=== PATIENT | female | born 1995 | race Caucasian/White ===

== ENCOUNTER 2020-06-07 23:47 | Emergency (ER) | payer BC, OTHER ==
[2020-06-08 00:37] LABS: Urine Blood NEGATIVE (NEG); Urine Glucose NEGATIVE (NEG); Urine Protein NEGATIVE (NEG); Urine Specific Gravity 1.015 (1.005-1.030)
[2020-06-08 00:39] LABS: Absolute Lymphocytes (CBC) 3.2 K/uL (0.7-4.9); Basophils % 0.3 % (0-1.3); Hematocrit 35.8 % (36.0-45.0); Lymphocytes % 22.8 % (15.3-44.8); MPV 8.8 fL (7.6-11.3); RBC Red Blood Cell Count 3.78 M/uL (3.86-4.86)
[2020-06-08] MEDS ORDERED: ONDANSETRON 4 MG/2 ML VIAL ONE (00:43)
[2020-06-08 00:56] LABS: ALT/SGPT 13 U/L (12-78); AST/SGOT 10 U/L (15-37); Albumin 3.2 g/dL (3.4-5.0); Alkaline Phosphatase 37 U/L (45-117); BUN Blood Urea Nitrogen 6 mg/dL (7-18); Bicarbonate 25 mmol/L (21-32); Bilirubin Direct < 0.1 mg/dL (0-0.2); Bilirubin Total 0.2 mg/dL (0.2-1.0); Glucose Level 81 mg/dL (74-106); Potassium 3.6 mmol/L (3.5-5.1); Protein, Total 7.1 g/dL (6.4-8.2); Sodium Level 140 mmol/L (136-145)
[2020-06-08 01:02] LABS: Urine Bacteria LOADED /HPF (<20); Urine Mucus 1+ /HPF (NONE SEEN); Urine RBC <5 /HPF (NONE SEEN)
--- NOTE | 2020-06-08 02:00 | EDPHYS ---
Physician Documentation [facility] Name: Winsome Matos Age: 25 yrs Sex: Female : 1995 Arrival Date: 06/07/2020 Time: 23:53 Bed 19 Private MD: ED Physician Gus Jacobs HPI: 06/08 00:43 This 25 yrs old Female presents to ER via Ambulatory with complaints of mh7 Nausea/Vomiting. 00:43 The patient presents to the emergency department with abdominal pain, of the left lower mh7 quadrant, that started last night, described as intermittent, sharp. The estimated gestational age is 19 weeks. course: care: private OB physician, Leakage of Fluid: none appreciated, Ultrasound: the patient had an ultrasound, Risk/complications: clotting disorder. Associated signs and symptoms: Pertinent positives: nausea, Pertinent negatives: chest pain, diarrhea, dysuria, fever, frequency, ruptured membranes, seizure, shortness of breath, vaginal bleeding, vaginal discharge, vomiting. IRRIGATOR: 00:05 Verified wh Historical: - Allergies: 00:04 NKDA; wh - Home Meds: 00:04 Vitamin Oral tab 1 tab once daily [Active]; levothyroxine oral [Active]; Aspirin Oral [Active]; - PMHx: 02:12 Hypothyroidism; sg - Immunization history:: Adult Immunizations up to date. - Social history:: Smoking status: Patient/guardian denies using. ROS: 00:43 Constitutional: Negative for fever, chills, and weight loss, Eyes: Negative for injury, mh7 pain, redness, and discharge, ENT: Negative for injury, pain, and discharge, Neck: Negative for injury, pain, and swelling, Cardiovascular: Negative for chest pain, palpitations, and edema, Respiratory: Negative for shortness of breath, cough, wheezing, and pleuritic chest pain, Back: Negative for injury and pain, : Negative for injury, bleeding, discharge, and swelling, MS/Extremity: Negative for injury and deformity, Skin: Negative for injury, rash, and discoloration, Neuro: Negative for headache, weakness, numbness, tingling, and seizure, Psych: Negative for depression, anxiety, suicide ideation, homicidal ideation, and hallucinations, Allergy/Immunology: Negative for hives, rash, and allergies, Endocrine: Negative for neck swelling, polydipsia, polyuria, polyphagia, and marked weight changes, Hematologic/Lymphatic: Negative for swollen nodes, abnormal bleeding, and unusual bruising. Exam: 00:43 Constitutional: This is a well developed, well nourished patient who is awake, alert, mh7 and in no acute distress. Head/Face: Normocephalic, atraumatic. Eyes: Pupils equal round and reactive to light, extra-ocular motions intact. Lids and lashes normal. Conjunctiva and sclera are non-icteric and not injected. Cornea within normal limits. Periorbital areas with no swelling, redness, or edema. Neck: Trachea midline, no thyromegaly or masses palpated, and no cervical lymphadenopathy. Supple, full range of motion without nuchal rigidity, or vertebral point tenderness. No Meningismus. Chest/axilla: Normal chest wall appearance and motion. Nontender with no deformity. No lesions are appreciated. Cardiovascular: Regular rate and rhythm with a normal S1 and S2. No gallops, murmurs, or rubs. Normal PMI, no JVD. No pulse deficits. Respiratory: Lungs have equal breath sounds bilaterally, clear to auscultation and percussion. No rales, rhonchi or wheezes noted. No increased work of breathing, no retractions or nasal flaring. 00:43 Back: No spinal tenderness. No costovertebral tenderness. Full range of motion. Skin: Warm, dry with normal turgor. Normal color with no rashes, no lesions, and no evidence of cellulitis. MS/ Extremity: Pulses equal, no cyanosis. Neurovascular intact. Full, normal range of motion. Neuro: Awake and alert, GCS 15, oriented to person, place, time, and situation. Cranial nerves II-XII grossly intact. Motor strength 5/5 in all extremities. Sensory grossly intact. Cerebellar exam normal. Normal gait. 00:43 Abdomen/GI: Inspection: gravid appearance, is noted, Bowel sounds: normal, in all quadrants, Palpation: mild abdominal tenderness, in the left lower quadrant, Rectal exam: the exam is deferred, because of patient request, Indicators: McBurney's point is not tender, Hauser's sign is negative, Rovsing's sign is negative, Obturator sign is negative, Psoas sign is negative, Liver: no appreciated palpable abnormalities, Hernia: not appreciated. Vital Signs: 00:09 BP 114 / 71; Pulse 84; Resp 18; Temp 98.2; Pulse Ox 100% on R/A; Weight 83.91 kg; wh Height 5 ft. 0 in. (152.40 cm); 01:30 BP 104 / 57; Pulse 72; Resp 18; Pulse Ox 100% on R/A; wh 00:09 Body Mass Index 36.13 (83.91 kg, 152.40 cm) wh MDM: 01:57 Differential diagnosis: threatened Ab, inevitable Ab, complete Ab, retained Ab, septic mh7 Ab, missed Ab, ectopic , UTI. Data reviewed: vital signs, nurses notes, lab test result(s), Beta HCG: CBC, electrolytes, urinalysis, radiologic studies, ultrasound. Data interpreted: Pulse oximetry: on room air is 100 %. Interpretation: normal. Response to treatment: the patient's symptoms have resolved after treatment, the patient's blood pressure is in an acceptable range, mental status has returned to baseline, the patient no longer shows bradycardia, the patient is not short of breath, the patient is not tachycardic, the patient's pain is gone, the patient's temperature has normalized. 02:00 Patient medically screened. [facility] 06/08 00:11 Order name: CBC with Diff; Complete Time: [facility] 06/08 00:11 Order name: Basic Metabolic Panel; Complete Time: [facility] 06/08 00:11 Order name: LFT's; Complete Time: [facility] 06/08 00:12 Order name: Abo/rh Typing; Complete Time: [facility] 06/08 00:14 Order name: HCG-Quantitative; Complete Time: [facility] 06/08 00:32 Order name: Urine Microscopic Only; Complete Time: :46 ea 06/08 00:12 Order name: Urine Dipstick-Ancillary (obtain specimen); Complete Time: 00:32 [facility] 06/08 00:23 Order name: OB Limited EDMS 06/08 00:33 Order name: Urine --Ancillary (enter results); Complete Time: [facility] 06/08 00:33 Order name: Urine Dipstick--Ancillary (enter results); Complete Time: [facility] 06/08 01:04 Order name: Urine Culture EDTN 06/08 00:12 Order name: Saline Lock; Complete Time: 00:32 mh7 Administered Medications: 00:59 Drug: Zofran (Ondansetron) 4 mg Route: IVP; Site: right antecubital; 02:12 Follow up: Response: No adverse reaction; Nausea is decreased Disposition: 06/08/20 02:00 Discharged to Home. Impression: Abdominal Pain in , UTI. - Condition is Stable. - Discharge Instructions: Urinary Tract Infection, Adult, [id number], Abdominal Pain During , Ifdr-br-Seca. - Prescriptions for Zofran ODT 4 mg Oral tablet,disintegrating - place 1 tablet by TRANSLINGUAL route every 8 hours As needed; 6 tablet. Macrobid 100 mg Oral Capsule - take 1 capsule by ORAL route every 12 hours for 7 days; 14 capsule. - Medication Reconciliation Form, Thank You Letter, Antibiotic Education, Prescription Opioid Use form. - Follow up: Private Physician; When: 1 - 2 days; Reason: Worsening of condition, Recheck today's complaints, Continuance of care, Re-evaluation by your physician. Follow up: Yvette Oconnor MD; When: 1 - 2 days; Reason: Worsening of condition, Recheck today's complaints. - Problem is new. - Symptoms have improved. Signatures: Dispatcher [employer] EDTN Joseph Padilla, SUE RN Annette Roberts Gus Jacobs MD MD mh7 Corrections: (The following items were deleted from the chart) 00:23 00:17 Transvaginal Ob+US.RAD.BRZ ordered. EDTN EDTN 00:26 00:22 OB Limited+US.RAD.BRZ ordered. EDTN EDMS 02:13 02:00 06/08/2020 02:00 Discharged to Home. Impression: Abdominal Pain in ; UTI. Condition is Stable. Forms are Medication Reconciliation Form, Thank You Letter, Antibiotic Education, Prescription Opioid Use. Follow up: Private Physician; When: 1 - 2 days; Reason: Worsening of condition, Recheck today's complaints, Continuance of care, Re-evaluation by your physician. Follow up: Yvette Sweeney; When: 1 - 2 days; Reason: Worsening of condition, Recheck today's complaints. Problem is new. Symptoms have improved. 7
--- NOTE | 2020-06-08 02:00 | ER ---
Nurse's Notes [facility] Name: Winsome Matos Age: 25 yrs Sex: Female : 1995 Arrival Date: 06/07/2020 Time: 23:53 Bed 19 Private MD: Diagnosis: Abdominal Pain in ;UTI Presentation: 06/08 00:02 Chief complaint: Patient states: C/O persistent nausea and one time vomiting. Pt also wh C/O LLQ pain that started tonight. Pt 20 weeks . Last Seen Ob Apr 15 and next appointment on Jun 24. Coronavirus screen: Client denies travel out of the [place] in the last 14 days. nausea, vomiting. Ebola Screen: Patient negative for fever greater than or equal to 101.5 degrees Fahrenheit, and additional compatible Ebola Virus Disease symptoms Patient denies exposure to infectious person. Initial Sepsis Screen: Does the patient meet any 2 criteria? No. Patient's initial sepsis screen is negative. Does the patient have a suspected source of infection? Yes: Acute abdominal pain. Risk Assessment: Do you want to hurt yourself or someone else? Patient reports no desire to harm self or others. Onset of symptoms was June 08, 2020. 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 - Social history:: Smoking status: Patient/guardian denies using. Screenin:05 Abuse screen: Denies threats or abuse. Denies injuries from another. Nutritional screening: No deficits noted. Tuberculosis screening: No symptoms or risk factors identified. Fall Risk None identified. Assessment: 00:05 General: Appears in no apparent distress. Behavior is calm, cooperative, appropriate for age. Pain: Complains of pain in left lower quadrant Quality of pain is described as pinching, Pain began 1 day ago. Neuro: Level of Consciousness is awake, alert, obeys commands, Oriented to person, place, time, situation, Appropriate for age. Cardiovascular: Capillary refill < 3 seconds. Respiratory: Airway is patent Respiratory effort is even, unlabored, Respiratory pattern is regular, symmetrical. GI: Abdomen is round non-distended, Reports lower abdominal pain, nausea, vomiting. : No signs and/or symptoms were reported regarding the genitourinary system. EENT: No signs and/or symptoms were reported regarding the EENT system. Derm: Skin is intact, is healthy with good turgor, Skin is pink, warm \T\ dry. normal. Musculoskeletal: Circulation, motion, and sensation intact. 01:05 Reassessment: Patient appears in no apparent distress at this time. No changes from previously documented assessment. Patient and/or family updated on plan of care and expected duration. Pain level reassessed. Patient is alert, oriented x 3, equal unlabored respirations, skin warm/dry/pink. 02:10 Reassessment: Patient appears in no apparent distress at this time. Patient and/or family updated on plan of care and expected duration. Pain level reassessed. Patient is alert, oriented x 3, equal unlabored respirations, skin warm/dry/pink. Vital Signs: 00:09 BP 114 / 71; Pulse 84; Resp 18; Temp 98.2; Pulse Ox 100% on R/A; Weight 83.91 kg; Height 5 ft. 0 in. (152.40 cm); 01:30 BP 104 / 57; Pulse 72; Resp 18; Pulse Ox 100% on R/A; wh 00:09 Body Mass Index 36.13 (83.91 kg, 152.40 cm) ED Course: 06/07 23:53 Patient arrived in ED. cl3 23:56 Gus Jacobs MD is Attending Physician. mh7 06/08 00:02 Annette Reed is Primary Nurse. 00:03 Triage completed. 00:05 Patient has correct armband on for positive identification. Bed in low position. Call light in reach. Side rails up X 1. Pulse ox on. NIBP on. 00:06 Arm band placed on right wrist. 00:20 Inserted saline lock: 20 gauge in right antecubital area, using aseptic technique. Blood collected. 00:58 OB Limited In Process Unspecified. EDMS 01:59 Yvette Oconnor MD is Referral Physician. mh7 02:12 No provider procedures requiring assistance completed. IV discontinued, intact, bleeding controlled, No redness/swelling at site. Administered Medications: 00:59 Drug: Zofran (Ondansetron) 4 mg Route: IVP; Site: right antecubital; 02:12 Follow up: Response: No adverse reaction; Nausea is decreased Outcome: 02:00 Discharge ordered by . [facility] 02:12 Discharged to home ambulatory. 02:12 Condition: stable 02:12 Discharge instructions given to patient, Instructed on discharge instructions, follow up and referral plans. medication usage, POC Demonstrated understanding of instructions, follow-up care, medications, POC Prescriptions given X 2. 02:13 Patient left the ED. Signatures: Dispatcher [employer] EDJoseph Carmichael, SUE RN Annette Roberts Charde cl3 Gus Jacobs MD MD 7
--- NOTE | 2020-06-08 08:57 | RAD REPORT ---
EXAM DESCRIPTION: US - OB Limited - 06/08/2020 12:58 am CLINICAL HISTORY: ABD PAINsecond-trimester Preliminary findings provided at the time of the study. COMPARISON: Transvaginal OB dated 12/02/2016None. FINDINGS: A single cephalic presenting gestation is identified. The 4 chamber heart view has a dustin l appearance. Heart rate normal. A limited, gross assessment of the anatomy shows no abnormalit ies. measurements are as follows: BPD:4.66 Centimeters 20 weeks 0 days HC:17.64 Centimeters 20 weeks 0 days AC:14.41 Centimeters 19 weeks 5 days HL: Centimeters FL:2.98 Centimeters 19 weeks 1 day The estimated gestational age (EGA) is 19 weeks 5 days with an REJI of 10/28/2020. ratios are n ormal or within acceptable limits. The placenta is grade 0, anterior in location. No low-lying or litzy centa previa. No placental abruption or marginal hematoma seen. The amniotic fluid volume is normal. No maternal adnexal abnormality. Cervical canal is long and closed measuring approximately 3.1 cm IMPRESSION: 1. Single cephalic gestation with an EGA of 19 weeks 5 days and an REJI of the 10/28/2020 . 2. No abnormalities are identifiable. ratios are normal or within acceptable limits. 3. Grade 0, anterior placenta with associated abnormalities. 4. Amniotic fluid volume is normal. Cervix is closed.
[2020-06-10 20:05] VITALS: TEMP 98.2; O2SAT 100
[2020-06-10 20:07] VITALS: BP 104/57
== END 2020-06-08 02:13 | disposition home or self-care (01) ==
LOC: ER 23:47
DX: O23.42 Unspecified infection of urinary tract in pregnancy, second trimester (principal); O99.282 Endocrine, nutritional and metabolic diseases complicating pregnancy, second trimester; E03.9 Hypothyroidism, unspecified; Z3A.19 19 weeks gestation of pregnancy
CPT/HCPCS: 87088; 85025; 87086; 80048; 36415; 86900; 81025; 86901; 80076; 84702; 76815; 96374; 99284; J2405; 81003; 81015